=== PATIENT | male | born 1970 | race Caucasian/White ===

== ENCOUNTER 2017-02-24 20:24 | Emergency (ER) | payer SELFPAY ==
[~2017-02-24] VITALS: Ht 172.7 cm; Wt 75.5 kg
[~2017-02-24 20:24] MED LIST: DOCU-144 PO; TRAM50TA2 PO
[2017-02-24 21:02] VITALS: Ht 172.7 cm; Wt 75.5 kg
== END 2017-02-24 23:02 | disposition left against medical advice (07) ==
LOC: FTE 20:24
DX: Z53.21 Procedure and treatment not carried out due to patient leaving prior to being seen by health care provider (principal)

== ENCOUNTER 2017-09-27 14:22 | Emergency (ER) | END 2017-09-27 15:10 | disposition home or self-care (01) ==

== ENCOUNTER 2017-11-15 12:46 | Emergency (ER) | END 2017-11-15 14:17 | disposition home or self-care (01) ==

== ENCOUNTER 2018-04-27 10:02 | Emergency (ER) | END 2018-04-27 10:56 | disposition home or self-care (01) ==

== ENCOUNTER 2018-05-17 11:10 | Emergency (ER) | END 2018-05-17 13:30 | disposition home or self-care (01) ==